=== PATIENT | male | born 1995 | race Caucasian/White ===

== ENCOUNTER 2018-06-22 03:25 | Emergency (ER) | payer BC, OTHER ==
[~2018-06-22] VITALS: Ht 175.3 cm; Wt 78.5 kg
[2018-06-22 03:29] VITALS: BP 145/84
[2018-06-22] MEDS ORDERED: GELATIN SPONGE,ABSORBABLE 1 SPONGE SPONGE TP ONE ×2 (03:44→04:00)
== END 2018-06-22 04:23 | disposition home or self-care (01) ==
LOC: ER 03:27
DX: S61.305A Unspecified open wound of left ring finger with damage to nail, initial encounter (principal); F17.200 Nicotine dependence, unspecified, uncomplicated; Z90.89 Acquired absence of other organs; Z88.8 Allergy status to other drugs, medicaments and biological substances; W45.8XXA Other foreign body or object entering through skin, initial encounter; Y93.89 Activity, other specified; Y92.89 Other specified places as the place of occurrence of the external cause; Y99.8 Other external cause status
CPT/HCPCS: A6402